=== PATIENT | male | born 1960 | race Caucasian/White ===

== ENCOUNTER 2023-11-25 16:23 | Inpatient (IN) | payer OTHER, SELFPAY ==
[2023-11-25] VITALS (10 sets, daily range): BP systolic 98–124; BP diastolic 52–83; BMI 20.1
[2023-11-25 12:27] LABS: Glucose - Point of Care 388 mg/dl (70-99)
[2023-11-25 12:36] LABS: % Basophils 0.7 % (0-2); % Eosinophils 0.2 % (0-6); % Immature Granulocytes 0.2 % (0-0.5); % Lymphocytes 10.4 % (20.5-51.1); % Monocytes 5.2 % (1.7-9.3); % Neutrophils 83.3 % (42.2-75.2); Absolute Lymphocytes 0.6 10^3/uL (1.2-3.4); Absolute Monocytes 0.3 10^3/uL (0.1-0.6); Hematocrit 43.4 % (39.0-52.0); Hemoglobin 15.5 g/dL (13.0-18.0); Mean Corp Hgb Conc. 35.7 g/dL (33.0-37.0); Mean Corpuscular Hgb 30.3 pg (27.0-31.0); Mean Corpuscular Volume 84.9 fL (80.0-94.0); Mean Platelet Volume 10.9 fL (7.4-10.4); Nucleated Red Blood Cells % 0 % (-); Platelet Count 216 10^3/uL (130-400); Red Blood Cell Count 5.11 10^6/uL (4.70-6.10); Red Cell Dist. Width 12.6 % (11.5-14.5)
[2023-11-25 12:45] LABS: ALT (SGPT) 43 U/L (0-50); AST (SGOT) 33 U/L (17-59); Albumin 5.1 g/dl (3.5-5.0); Alkaline Phosphatase 155 U/L (38-126); Blood Urea Nitrogen 13 mg/dl (9-20); Calcium 10.1 mg/dl (8.4-10.2); Carbon Dioxide 15 mmol/L (22-30); Chloride 98 mmol/L (98-107); Glucose 429 mg/dl (70-99); Potassium 5.2 mmol/L (3.5-5.1); Sodium 137 mmol/L (135-145); Total Bilirubin 1.2 mg/dl (0.2-1.3); Total Protein 6.6 g/dl (6.3-8.2); eGFR > 60.00
[2023-11-25 13:30] LABS: Urine Albumin Trace (Neg - Trace); Urine Bilirubin Negative (Negative); Urine Character Clear (Clear); Urine Color Yellow; Urine Glucose 3+ (Negative); Urine Ketone 3+ (Negative); Urine Leukocyte Negative (Negative); Urine Nitrite Negative (Negative); Urine Occult Blood Negative (Negative); Urine Urobilinogen Negative (Neg - 1+)
--- NOTE | 2023-11-25 13:39 | ED.GENMED ---
History of Present Illness
General
Chief Complaint: Blood Sugar Problem
Source: patient
Time Seen by Provider: 11/25/23 13:28
History of Present Illness
History of Present Illness:
62-year-old male presents to the emergency room complaining of high blood sugar, increased thirst, increased urination. Patient has diabetes for which he is prescribed metformin, long-acting insulin and short acting insulin. Patient states he no
longer has benefits and is unable to afford his medication. He has not taken his medication for about 2 weeks. He was seen by his primary care doctor who sent him to the emergency room. Patient denies any nausea or vomiting. He denies abdominal
pain. No fever or chills.
Phy Exam
Physical Exam
Physical Exam:
General: Awake, Alert, Oriented X3. No acute distress, appears quite thin, chronically ill
Vitals: unremarkable
Head: Atraumatic
Eyes: Pupils equal, EOMI
Throat: Airway intact, no exudates, dry mucosa
Neck: Trachea midline
Lungs: Clear and equal b/l
Heart: Regular rate, no murmurs
Abd: Soft, Nontender, No pulsatile mass
Neuro: Nonfocal
Skin: Warm, dry, no rash
Extremities: pulses equal b/l, no edema
Course
Orders/Labs/Results
Orders:
Orders
11/25/23 12:26
B-Hydroxybutyrate Urgent
Comment: ADD ON
Complete Blood Count/With Diff Urgent
Comprehensive Metabolic Panel Urgent
11/25/23 13:12
Urinalysis Reflex To Culture Urgent
Date Specimen was Collected: 11/25/23
Time Specimen was Collected: 12:22
11/25/23 13:30
Add On- LAB Urgent
Tests Added?: b-hydroxybuterate
11/25/23 13:39
0.9% Sodium Chloride 1000 ml [Nss] 1,000 ml IV BOLUS
11/25/23 14:24
Venous Blood Gas Urgent
%Oxygen/Room Air: ra
11/25/23 14:46
Bedside Glucose- Treatment Q1H
IV Insert/Care/Rem.- Treatment PRN
11/25/23 15:03
Reg Insulin 100 Units/100 ml [Novolin R Insulin Infusion] 100 units in 100 ml IV NOW
11/25/23 15:04
KCl 20 Meq/0.9%Sodchl 1000 ml [NSS with KCL 20 MEQ] 20 meq in 1,000 ml IV 125 mls/hr
11/25/23 15:29
Basic Metabolic Panel Q2H
11/25/23 15:51
0.9% Sodium Chloride 1000 ml [Nss] 1,000 ml IV BOLUS
11/25/23 15:59
Admit/Transfer Patient As Directed
Co-Sign Provider:
Level of Care: Inpatient admission
Assign to:: IMU- Intermediate Care
Physician / Group: Mary Armendariz
Diagnosis: DKA
Reason for Hospitalization: DKA
Expected length of stay greater than two midnights?: Yes
ELOS- Estimated Length of Stay in days: 3
I certify the patient meets the requirements for IP care: Yes
PRN Pain Medication Management As Directed
May give lesser potent ordered pain med per pt: Yes
preference::
Protocol:: Medication orders for pain may be administered in a
manner that supports deferring to patient preference
when the pt is:
- Requesting an ordered lesser potent pain medication.
Least to most potent pain medications are defined
as: acetaminophen < NSAID < tramadol < opioids
(morphine, oxycodone, hydromorphone).
- Requesting a lesser dose of the same medication IF
ORDERED.
- Requesting a less intrusive route of administration
if both routes are prescribed by the provider (PO <
IV).
11/25/23 16:00
Code Status As Directed
Resuscitation Status: Full Code
11/25/23 17:09
Basic Metabolic Panel Q2H
11/25/23 17:39
Bedside Glucose Monitoring As Directed
Frequency: Q1H
Nursing to Place Non Medication Order As Directed
Physician Order: TT me with each BMP result (until 11:30 PM then please TT house [employer]ING CUTTER if insulin gtt is still
going)
11/25/23 18:28
Enoxaparin Sodium [Lovenox] 40 mg SC QPM
Reg Insulin 100 Units/100 ml [Novolin R Insulin Infusion] 100 units in 100 ml IV PER PROTOCOL
Currently infusing. Continue current dose and titrate:: Yes
11/25/23 18:28
Diabetes Management by Nurse Practitioner Routine
Consulting Provider: Janette Ayoub
Was provider already notified?: Yes
Activity As Directed
Activity Level: As Tolerated
Intake/ Output As Directed
Frequency: Per unit guidelines
Notify MD As Directed
Notify physician if: Nurse to contact provider when glucose reaches 250 to obtain orders for D5 0.45 NaCl
Vital Signs As Directed
Frequency: Per unit guidelines
DX Deep Vein Thrombosis Video Routine
11/25/23 23:00
Basic Metabolic Panel Q4H
11/26/23 03:00
Basic Metabolic Panel Q4H
11/26/23 Breakfast
NPO
Allow oral meds: Yes
Allow clear liquids: No
NPO with Ice Chips: Yes
Basic Metabolic Panel IN AM
Complete Blood Count/No Diff IN AM
11/26/23 07:00
Basic Metabolic Panel Q4H
11/26/23 11:00
Basic Metabolic Panel Q4H
11/26/23 15:00
Basic Metabolic Panel Q4H
11/26/23 19:00
Basic Metabolic Panel Q4H
11/26/23 23:00
Basic Metabolic Panel Q4H
Abnormal Lab Results
11/25/23 11/25/23 11/25/23
12:25 12:26 13:12
MPV 10.9 H fL
(7.4-10.4)
Absolute Lymphs (auto) 0.6 L 10^3/uL
(1.2-3.4)
Neutrophils % 83.3 H %
(42.2-75.2)
Lymphocytes % 10.4 L %
(20.5-51.1)
VBG pH
VBG HCO3
Potassium 5.2 H mmol/L
(3.5-5.1)
Carbon Dioxide 15 L mmol/L
(22-30)
Creatinine 0.6 L mg/dL
(0.7-1.3)
Glucose 429 H mg/dl
(70-99)
Alkaline Phosphatase 155 H U/L
(38-126)
Albumin 5.1 H g/dl
(3.5-5.0)
Urine Ketones 3+ A
(Negative)
Urine Glucose 3+ A
(Negative)
B-Hydroxybutyrate > 6.00 H mmol/L
(0.02-0.27)
POC Glucose 388 H mg/dl
(70-99)
11/25/23 11/25/23
14:24 15:29
MPV
Absolute Lymphs (auto)
Neutrophils %
Lymphocytes %
VBG pH 7.21 L
(7.32-7.43)
VBG HCO3 15.2 L mmol/L
(22-27)
Potassium
Carbon Dioxide 12 L* mmol/L
(22-30)
Creatinine 0.6 L mg/dL
(0.7-1.3)
Glucose 356 H mg/dl
(70-99)
Alkaline Phosphatase
Albumin
Urine Ketones
Urine Glucose
B-Hydroxybutyrate
POC Glucose
11/25/23 12:26
11/25/23 15:29
Vital Signs
Initial and Last Documented VS:
Initial Vital Signs
Temp Pulse Resp BP Pulse Ox
97.5 F 92 18 115/69 98
11/25/23 12:17 11/25/23 12:17 11/25/23 12:17 11/25/23 12:17 11/25/23 12:17
Last Documented Vital Signs
Temp Pulse Resp BP Pulse Ox
97.5 F 58 15 108/52 100
11/25/23 12:17 11/25/23 19:07 11/25/23 19:07 11/25/23 19:06 11/25/23 19:07
MDM/Problems Addressed
Differential Diagnosis Includes:
DKA, hyperosmolar hyperglycemic state, hypoglycemia, electrolyte abnormality
MDM/Problems Addressed:
Patient presents with polyuria, polydipsia, weakness after not having access to his diabetic medication for the last 2 weeks or so. Patient is hemodynamically stable. His CBC is unremarkable. His chemistry show an anion gap metabolic acidosis.
Beta hydroxybutyrate is high and a venous blood gas shows a mild metabolic acidosis. Insulin drip initiated. Patient will be admitted to the hospital service for close monitoring and treatment.
Acute Exacerbation and/or Progression of Chronic Illness: DM
*Pulse Oximetry
Patient hypoxic: no
*Sharepoint Solutions Architect Interpretation
Rate: normal
Interpretation: normal
Heart Rate: 92
Rhythm: sinus
*Critical Care Note
Total Time (30-74mins, 75-104mins- exclusive of procedures): 35 min
comment:
Critical care statement: A total of 35 minutes of critical care time was provided for this patient. This includes management of unstable vital signs, evaluation of the patient at bedside, reviewing the patient's pertinent medical records, discussion
with consultants, review of old EKGs and review of pertinent medical records. This time with separate from time utilized to perform the aforementioned documented procedures
ED Attending Note
-
Portions of this chart may have been created with voice recognition software.� Occasional wrong word or��sound alike� substitutions may have occurred due to the inherent limitations of voice recognition software.
Discharge Plan
Departure
Patient Disposition: Admit
Date of Disposition: 11/25/23
Time of Disposition: 14:50
Admit to: IMU
Presentation/result/management discussed w/ accepting MD/DO: Hospitalist
Condition: Serious
Discharge Problem:
DKA (diabetic ketoacidosis)
Interventions
Interventions:
*Risk Screen - Suicide Last Done: 11/25/23 12:17
*General Assessment Last Done: 11/25/23 12:17
*Neglect/Abuse Screening Last Done: 11/25/23 12:17
ED- Fall Risk Assessment Last Done: 11/25/23 14:32
*ED COVID-19 Vaccine History Last Done: 11/25/23 14:32
*Nursing Disposition Last Done: 11/25/23 18:39
ED- Neurological Assessment Last Done: 11/25/23 14:32
ED-Psychological Assessment Last Done: 11/25/23 14:32
Discharge Date and Time
Discharge Date/Time: 11/25/23 18:39
[2023-11-25] MEDS: NSS 1000 IV ×2 (14:25→15:52)
[2023-11-25 14:32] LABS: Venous Blood Gas HCO3 15.2 mmol/L (22-27); Venous Blood Gas pCO2 38 mmHg (35-48); Venous Blood Gas pH 7.21 (7.32-7.43); Venous Blood Gas pO2 45 mmHg (30-50)
[2023-11-25 14:33] LABS: B-Hydroxybutyrate > 6.00 mmol/L (0.02-0.27)
--- NOTE | 2023-11-25 15:23 | HPS.HSE ---
Family Physician
-
Family Physician: NOT KNOW UNKNOWN - PT DOES
Chief Complaint
-
high blood sugar
History of Present Illness
Mr. Arthur Roberts is a 62 yo man with hx DMII who presents to the ER with high blood sugars, increased thirst and urination in setting of not taking his insulin. Patient was not able to obtain medications over past 2 weeks secondary to insurance
issues.
Over past couple of days he has had increased thirst and urination. Previously he was taking Tresiba 30 units qhs and Lispro 4-6 units pre-meals in addition to metformin twice a day.
No fevers/chills. No cough/congestion. No dysuria. No chest pain. No nausea/vomiting/abdominal pain. No LE welling. No rash.
Medical History
Past Medical History
Past Medical History: Reports IDDM
Past Surgical History: Reports None
Social History
Tobacco: Non-smoker
Alcohol: Occasional
Family History
Family History: Not pertinent
Allergies / Home Medications
Allergies reflects when Allergies were last updated in [facility].
Home Medications with original date entered in [facility]
Allergy/Medication List:
Allergies
Allergy/AdvReac Type Severity Reaction Status Date / Time
No Known Allergies Allergy Unverified 11/25/23 12:17
Home Medications
insulin degludec 100 unit/mL (3 mL) subcutaneous pen (Tresiba FlexTouch U-100 insulin) 30 unit SC DAILY DIABETES 11/25/23
insulin lispro 100 unit/mL subcutaneous pen (Humalog KwikPen (U-100) Insulin) 5 unit SC TID DIABETES 11/25/23
metformin 500 mg tablet,extended release 24 hr 1,000 mg PO BID DIABETES 11/25/23
simvastatin 20 mg tablet 20 mg PO DAILY High Cholesterol 11/25/23
Review of Systems
-
History Source: Patient
A 12 point ROS was completed and negative except as noted: Yes
Physical Exam
Vital Signs
Vital Signs
Temp Pulse Resp BP Pulse Ox
97.5 F 67 17 124/83 100
11/25/23 12:17 11/25/23 14:30 11/25/23 14:30 11/25/23 14:21 11/25/23 14:30
Physical Exam
General: No Apparent Distress
HEENT: PERRLA
Respiratory: Clear; No Wheezes
Cardiac: S1/S2 and Regular Rhythm
GI: Soft and Non Tender
Musculoskeletal: No Edema
Skin: Warm and Dry; No Rash
Psych: Calm
Laboratory Results
-
11/25/23 12:26
Laboratory Results
Total Bilirubin 1.2 mg/dl (0.2-1.3) 11/25/23 12:26
AST 33 U/L (17-59) 11/25/23 12:26
ALT 43 U/L (0-50) 11/25/23 12:26
Alkaline Phosphatase 155 U/L (38-126) H 11/25/23 12:26
Data Reviewed
-
Diagnostic Radiology: Report Reviewed by me
Lab Data: Labs Reviewed by me
Impression/Plan
-
Mr. Arthur Roberts is a 62 yo man with hx DM II who presents to the ER with high blood sugars, increased thirst and urination in setting of not taking his insulin.
Triage VS: T 97.5, P 92, RR 18, BP 115/69, SpO2 98%
LABS: WBC 6, Hg 15.5, PLT 216, Na 137, K+ 5.2, Cl 98, CO2 15, Cr 0.6, Glucose 429
AG = 24
UA with 3+ Ketones and Glucose
MAR: 1L IVF, insulin gtt, KCl
DKA
-etiology is from not taking medication x 2 weeks 2/2 lack of insurance coverage
-2L bolus in ER, insulin gtt starting
-admit to IMU
-NPO
-continue insulin gtt
-q4hour BMP - RN to text me results
-IVF with KCl
-start D5 when blood glucose < 250
-transition to subQ insulin once gap closes (with 1-2 hours overlap)
-resume home regimen when transition to subQ
-monitor K
-CM and DM [employer] REPA[employer] TECHNICIAN consults
DVT PPx lovenox subQ
FULL CODE
76 minutes spent on patient care
[2023-11-25] MEDS: NSS with KCL 20 MEQ 1000 IV (15:55)
[2023-11-25] MEDS: NOVOLIN R INSULIN INFUSION 100 IV (15:57)
[2023-11-25 16:14] LABS: Blood Urea Nitrogen 12 mg/dl (9-20); Calcium 9.3 mg/dl (8.4-10.2); Carbon Dioxide 12 mmol/L (22-30); Chloride 103 mmol/L (98-107); Estimated Creatinine Clearance 110 ml/min; Glucose 356 mg/dl (70-99); Potassium 5.1 mmol/L (3.5-5.1); Sodium 137 mmol/L (135-145); eGFR > 60.00
[2023-11-25 17:26] LABS: Glucose - Point of Care 215 mg/dl (70-99)
[2023-11-25 17:39] LABS: Blood Urea Nitrogen 11 mg/dl (9-20); Carbon Dioxide 13 mmol/L (22-30); Chloride 108 mmol/L (98-107); Estimated Creatinine Clearance 110 ml/min; Glucose 218 mg/dl (70-99); Potassium 4.2 mmol/L (3.5-5.1); Sodium 140 mmol/L (135-145); eGFR > 60.00
[2023-11-25 18:06] LABS: Glucose - Point of Care 194 mg/dl (70-99)
[2023-11-25] MEDS: D5/0.45%NSS with KCL 20 MEQ 1000 IV (18:40)
--- NOTE | 2023-11-25 19:08 | PTCARENOTE ---
Admitted to 3343, Imu monitors placed, SR/ SB 58 Bp 108/52. Denies pain. Insulin gtt on arrival 3units/hr- IVF infusing as ordered- titrated insulin gtt down to 2 units/hr. Call stoddard in reach.
[2023-11-25 19:13] LABS: Glucose - Point of Care 159 mg/dl (70-99)
[2023-11-25] MEDS: LOVENOX 40 MG SC (20:07)
[2023-11-25 20:16] LABS: Glucose - Point of Care 124 mg/dl (70-99)
[2023-11-25 21:32] LABS: Glucose - Point of Care 140 mg/dl (70-99)
[2023-11-25 21:41] LABS: Blood Urea Nitrogen 11 mg/dl (9-20); Calcium 9.1 mg/dl (8.4-10.2); Carbon Dioxide 17 mmol/L (22-30); Chloride 108 mmol/L (98-107); Estimated Creatinine Clearance 110 ml/min; Glucose 151 mg/dl (70-99); Potassium 4.4 mmol/L (3.5-5.1); Sodium 139 mmol/L (135-145); eGFR > 60.00
[2023-11-25 22:37] LABS: Glucose - Point of Care 179 mg/dl (70-99)
[2023-11-25 23:21] LABS: Glucose - Point of Care 138 mg/dl (70-99)
[2023-11-26] VITALS (10 sets, daily range): BP systolic 96–150; BP diastolic 55–89; BMI 19.4
[2023-11-26 00:21] LABS: Glucose - Point of Care 125 mg/dl (70-99)
[2023-11-26 01:22] LABS: Glucose - Point of Care 130 mg/dl (70-99)
[2023-11-26 01:47] LABS: Blood Urea Nitrogen 9 mg/dl (9-20); Carbon Dioxide 19 mmol/L (22-30); Chloride 110 mmol/L (98-107); Estimated Creatinine Clearance 110 ml/min; Glucose 138 mg/dl (70-99); Potassium 4.3 mmol/L (3.5-5.1); Sodium 142 mmol/L (135-145); eGFR > 60.00
[2023-11-26 02:22] LABS: Glucose - Point of Care 121 mg/dl (70-99)
[2023-11-26] MEDS: D5/0.45%NSS with KCL 20 MEQ 1000 IV (02:57)
[2023-11-26 03:14] LABS: Glucose - Point of Care 117 mg/dl (70-99)
[2023-11-26 04:15] LABS: Glucose - Point of Care 127 mg/dl (70-99)
[2023-11-26 05:39] LABS: Glucose - Point of Care 132 mg/dl (70-99)
[2023-11-26 05:42] LABS: Hematocrit 35.1 % (39.0-52.0); Hemoglobin 12.8 g/dL (13.0-18.0); Mean Corp Hgb Conc. 36.5 g/dL (33.0-37.0); Mean Corpuscular Hgb 30.3 pg (27.0-31.0); Mean Platelet Volume 10.8 fL (7.4-10.4); Platelet Count 142 10^3/uL (130-400); Red Blood Cell Count 4.23 10^6/uL (4.70-6.10); Red Cell Dist. Width 12.8 % (11.5-14.5); White Blood Cell Count 3.5 10^3/uL (4.8-10.8)
[2023-11-26 05:55] LABS: Blood Urea Nitrogen 8 mg/dl (9-20); Calcium 8.9 mg/dl (8.4-10.2); Carbon Dioxide 21 mmol/L (22-30); Chloride 108 mmol/L (98-107); Estimated Creatinine Clearance 110 ml/min; Glucose 141 mg/dl (70-99); Sodium 139 mmol/L (135-145); eGFR > 60.00
--- NOTE | 2023-11-26 05:59 | PTCARENOTE ---
[address] Armendariz. Plan to continue insulin gtt overnight with Q1 hour blood glucose checks; patient updated on plan. 0100 BMP lab reported to YANDY Garcia. Pt denies any sob, pain, dizziness or nausea. Voiding at edge of bed
in urinal. no BM. Tolerating IVF. Kept NPO overnight per orders. Tele showing NSR/SB. VSS. Pt appears to have callus/old blisters at bottom of feet. Pt has some decreased sensation. Educated on checking feet everyday d/t being at risk for diabetic
foot wounds. Call stoddard and tray table left within reach. Pt calls appropriately.
[2023-11-26 06:19] LABS: Glucose - Point of Care 136 mg/dl (70-99)
--- NOTE | 2023-11-26 06:29 | W.PN.UPDATE ---
Update Note
Progress Note Update
Anion Gap at 10. Patient is not nauseous anymore per nursing. Will order a diet. Will add Lantus 15units in AM, Insulin Lispro 5 units TID. RN to stop the Insulin drip after 2 hours of Lantus. RN made aware.
[2023-11-26 07:11] LABS: Glucose - Point of Care 126 mg/dl (70-99)
--- NOTE | 2023-11-26 08:16 | PN.DE.MGMTRT ---
Insulin Management
- -
11/26/2023 Diabetes Management Consult
Patient admitted 11/[address] [facility] diabetes. Prior to admission was prescribed tresiba 30 units daily with humalog 4 to 6 units AC. Due to insurance issues has not had insulin for ~ 2 weeks. A1C ordered, cr .4, eGFR > 60.
11/25 Due to cost will start 70/30 insulin 25 units BID with low corrective. First dose now then insulin infusion off 1 after after administered.
Patient is awake, alert and oriented resting in bed. Able to discuss diabetes management. Impressed upon him [facility] would have the best khan for insulin. He feels he should be able to afford $63.00 for Novolin 70/30 at [facility]. He has a
working glucose monitor .
Will follow for possible needed adjustments.
Diabetes History
- -
Type of Diabetes: 2 requiring insulin
Pre-Admission Diabetes Regimen
11/25/23 11/25/23 11/25/23
12:26 15:29 17:09
Creatinine 0.6 L 0.6 L 0.6 L
11/25/23 11/25/23 11/25/23
19:00 21:00 21:21
Creatinine Cancelled Cancelled 0.5 L
11/25/23 11/26/23 11/26/23
23:00 01:20 05:28
Creatinine Cancelled 0.4 L 0.4 L
Insulin Pump Settings
IP Diabetes Regimen
11/25/23 11/25/23 11/25/23
12:25 12:26 15:29
Glucose 429 H 356 H
POC Glucose 388 H
11/25/23 11/25/23 11/25/23
17:09 17:23 18:04
Glucose 218 H
POC Glucose 215 H 194 H
11/25/23 11/25/23 11/25/23
19:00 19:02 20:05
Glucose Cancelled
POC Glucose 159 H 124 H
11/25/23 11/25/23 11/25/23
21:00 21:19 21:21
Glucose Cancelled 151 H
POC Glucose 140 H
11/25/23 11/25/23 11/25/23
22:25 23:00 23:09
Glucose Cancelled
POC Glucose 179 H 138 H
11/26/23 11/26/23 11/26/23
00:09 01:10 01:20
Glucose 138 H
POC Glucose 125 H 130 H
11/26/23 11/26/23 11/26/23
02:10 03:02 04:03
Glucose
POC Glucose 121 H 117 H 127 H
11/26/23 11/26/23 11/26/23
05:26 05:28 06:04
Glucose 141 H
POC Glucose 132 H 136 H
11/26/23
06:58
Glucose
POC Glucose 126 H
Patient Education
[2023-11-26 09:23] LABS: Glucose - Point of Care 126 mg/dl (70-99)
--- NOTE | 2023-11-26 10:01 | W.PN.HOSP.TC ---
Today's Communication/Plan
-
Transition to subcutaneous insulin
Case management discussed affordable insulin options outpatient
Assessment / Plan
Assessment / Plan
#Diabetic ketoacidosis
#T2DM
-Patient states he no longer has insurance benefits and was not able to afford insulin for 2-weeks
-Presented with acidemia, elevated BHB, elevated glucose consistent with DKA
-Started with on IV insulin drip protocol, anion gap closed x 2
-Potassium and phosphorus have been adequately repleted
-Patient states he feels well without symptoms, can tolerate p.o. intake
Plan
-Plan to transition to LA insulin 15 units daily, SA insulin 5 units with meals
-Will monitor ISS with Accu-Cheks and uptitrate insulin requirements as needed
-Blood glucose goal 140�180, avoid hypoglycemia
-Case management to discuss affordable options for insulin after discharge
-Carbohydrate controlled diet
-Plan to continue metformin at DC
DVT prophylaxis: Lovenox
Diet: Carbohydrate controlled
CODE STATUS: Full code
Anticipated Discharge: Within 24 hours
Subjective/Interval History
-
Date of Service: November 26, 2023
Seen and examined at the bedside. No acute events reported overnight. AFVSS this morning.
He states he feels well and without complaints. States that he lost his insurance benefits and is not been able to finance his insulin for 2 weeks
Denies chest pain, dyspnea, fevers or chills, nausea/vomiting/diarrhea/abdomen pain, urinary issues, bleeding or bruising, paresthesias or weakness
Objective Data
-
Labs:
Laboratory Results
11/26/23 11/26/23 11/26/23
01:20 05:28 09:00
WBC 3.5 L
Hgb 12.8 L
Hct 35.1 L
Plt Count 142 D
Sodium 142 139 Pending
Potassium 4.3 4.0 Pending
Chloride 110 H 108 H Pending
Carbon Dioxide 19 L 21 L Pending
BUN 9 8 L Pending
Creatinine 0.4 L 0.4 L Pending
Glucose 138 H 141 H Pending
Calcium 9.0 8.9 Pending
11/26/23 11/26/23
13:00 17:00
WBC
Hgb
Hct
Plt Count
Sodium Pending Pending
Potassium Pending Pending
Chloride Pending Pending
Carbon Dioxide Pending Pending
BUN Pending Pending
Creatinine Pending Pending
Glucose Pending Pending
Calcium Pending Pending
Vital Signs:
Vital Signs
Temp Pulse Resp BP Pulse Ox
97.6 F 54 16 96/60 97
11/26/23 07:10 11/26/23 06:00 11/26/23 06:00 11/26/23 06:00 11/26/23 06:00
I&O
11/25/23 11/26/23 11/27/23
06:59 06:59 06:59
Intake Total 1375 / 1375
Output Total 925 / 925
Balance 450 / 450
Review of Systems
-
History Source: Patient
All other systems: Reviewed and negative
Physical Exam
-
General: No Apparent Distress, Comfortable and Other (Thin male)
HEENT: Normocephalic, Atraumatic and Moist Mucous Membranes
Respiratory: Clear to Auscultation and Non Labored Respirations; Negative Wheezes, Rales or Rhonchi
Cardiac: Regular Rhythm and S1/S2 (Soft); Negative Murmur, Rub or Gallop
GI: Soft, Nontender, Nondistended and Normal Bowel Sounds
Musculoskeletal: No Clubbing, No Cyanosis and No Edema
Skin: Warm and Dry; Negative Rash
Neuro: AO x 3, Nonfocal/Grossly Intact and Central Nerve's Intact
Psych: Calm
Data Reviewed
-
Labs: Labs Reviewed by me, Discussed with Nurse and Discussed with Patient
[2023-11-26] MEDS: NOVOLOG MIX 70/30 FLEXPEN 25 UNITS SC ×2 (10:42→17:23)
[2023-11-26 10:52] LABS: Glucose - Point of Care 137 mg/dl (70-99)
[2023-11-26] MEDS: D5/0.45%NSS with KCL 20 MEQ IV (11:39)
[2023-11-26] MEDS: NOVOLOG FLEXPEN-LOW RESISTANCE SC (12:20)
[2023-11-26 12:30] LABS: Glucose - Point of Care 58 mg/dl (70-99)
[2023-11-26 12:31] LABS: Glycohemoglobin (HgbA1c) 10.1 % (4.0-5.6)
[2023-11-26 13:01] LABS: Glucose - Point of Care 119 mg/dl (70-99)
[2023-11-26 14:27] LABS: Glucose - Point of Care 177 mg/dl (70-99)
[2023-11-26] MEDS: NOVOLOG FLEXPEN-LOW RESISTANCE 1 UNITS SC (14:30)
--- NOTE | 2023-11-26 16:29 | CM ---
Patient with Dx DKA. Rom air.
Met with patient who resides alone in a 2 story townhouse with 1 GEMA that he is renting.
The patient has been independent in ADLs and ambulation.
DME - accucheck meter & test strips
The patient has no prior VN or SNF.
PCP - FANTA Garay
Pharmacy - [facility]
No housing/food/utility/transport insecurity.
Dr Campuzano reached out to CM re; affordable insulin for patient who doesn't have insurance anymore. CM deferred to the DM Educator to decide on best insulins for this patient.
The patient has concerns about cost of his insulin- he is aware DM Educator is helping him with insulin options, and feel he can afford the $65/month insulin that was suggested.
The patient is aware that [facility] is helping him apply for Medicaid.
Spoke with CAYDEN White; patient will likely be approved for [place] once he provides the requisite documents.
The patient has a brother Fawad in [place]. A friend will provide transport home.
No CM d/c needs identified.
Plan home.
--- NOTE | 2023-11-26 16:51 | PTCARENOTE ---
insulin drip discontinued. his pre breakfast blood sugar was 58 (70/30 given per order 1 hour prior and breakfast tray didnt arrive within hour. juice given and blood sugar within normal parameters. per protocol blood sugar repeated q2 hrs x 2. 2nd
q2 bllod sugar 345( first result rr high discarded d/t poor sample). notified general accounting manager, awaiting further orders.
[2023-11-26 16:52] LABS: Glucose - Point of Care 423 mg/dl (70-99)
[2023-11-26] MEDS: LOVENOX 40 MG SC (17:24)
[2023-11-26] MEDS: NOVOLOG FLEXPEN-LOW RESISTANCE 4 UNITS SC (18:30)
[2023-11-26 18:40] LABS: Glucose - Point of Care 309 mg/dl (70-99)
[2023-11-26 20:59] LABS: Hepatitis C Antibody Negative (Negative)
[2023-11-26 21:33] LABS: Glucose - Point of Care 178 mg/dl (70-99)
[2023-11-27] VITALS: BP 116/66
[2023-11-27 02:00] VITALS: BP 112/68
[2023-11-27 03:58] LABS: Glucose - Point of Care 54 mg/dl (70-99)
[2023-11-27 04:00] VITALS: BP 111/77
[2023-11-27 04:05] LABS: % Basophils 0.7 % (0-2); % Eosinophils 2.9 % (0-6); % Immature Granulocytes 0.2 % (0-0.5); % Lymphocytes 20.7 % (20.5-51.1); % Monocytes 6.7 % (1.7-9.3); % Neutrophils 68.8 % (42.2-75.2); Absolute Eosinophils 0.1 10^3/uL (0-0.7); Absolute Lymphocytes 0.9 10^3/uL (1.2-3.4); Absolute Monocytes 0.3 10^3/uL (0.1-0.6); Absolute Neutrophils 2.9 10^3/uL (1.4-6.5); Hematocrit 38.3 % (39.0-52.0); Hemoglobin 14.1 g/dL (13.0-18.0); Mean Corp Hgb Conc. 36.8 g/dL (33.0-37.0); Mean Corpuscular Hgb 30.4 pg (27.0-31.0); Mean Corpuscular Volume 82.5 fL (80.0-94.0); Mean Platelet Volume 10.9 fL (7.4-10.4); Nucleated Red Blood Cells % 0 % (-); Platelet Count 154 10^3/uL (130-400); Red Blood Cell Count 4.64 10^6/uL (4.70-6.10); Red Cell Dist. Width 12.6 % (11.5-14.5); White Blood Cell Count 4.2 10^3/uL (4.8-10.8)
[2023-11-27 04:26] LABS: Glucose - Point of Care 101 mg/dl (70-99)
[2023-11-27 04:41] LABS: Blood Urea Nitrogen 6 mg/dl (9-20); Calcium 9.1 mg/dl (8.4-10.2); Carbon Dioxide 28 mmol/L (22-30); Chloride 104 mmol/L (98-107); Estimated Creatinine Clearance 106 ml/min; Glucose 52 mg/dl (70-99); Sodium 141 mmol/L (135-145); eGFR > 60.00
--- NOTE | 2023-11-27 06:01 | PTCARENOTE ---
Addendum entered by Arlene Jackson RN 11/27/23 06:20:
The hypoglycemia episode was discussed with Maura KEBEDE in person.
Original Note:
3AM blood sugar was 54; pt asymptomatic. followed protocol and gave 4 oz OJ, recheck is 101. At 6AM 2 hour check blood sugar 119. Next blood sugar check due at 8AM.
No other events overnight.
Denies any pain/nausea/vomiting/sob/cp/palp.
Call stoddard and tray table within reach.
[2023-11-27 06:02] VITALS: BP 130/72
[2023-11-27 06:08] LABS: Glucose - Point of Care 119 mg/dl (70-99)
--- NOTE | 2023-11-27 07:48 | PN.DE.MGMTRT ---
Insulin Management
- -
11/27/2023 Diabetes Management F/U:
62 year old male admitted 11/24 with DKA. PMH: T2DM. Prior to admission was prescribed Tresiba 30 units daily with Humalog 4 to 6 units AC. Due to insurance issues has not had insulin for ~ 2 weeks. A1C ordered, cr .4, eGFR > 60. transitioned off
Insulin gtt to SQ insulin 11/25. Started 70/30 insulin 25 units BID with low corrective due to cost.
Patient is awake, alert and oriented resting in bed. Able to discuss diabetes management.
HS glucose was 178, pt received 25 units of 70/30- at dinner time-->hypoglycemia at 3AM as low as 53, improved to 101 after treatment.
Will reduce 70/30 dose to 22 units. Will continue to follow for further adjustments if needed
Impressed upon him [facility] would have the best khan for insulin.
he feels he should be able to afford $63.00 for Novolin 70/30 at [facility]. He has a working glucose monitor .
Diabetes History
- -
Type of Diabetes: 2 requiring insulin
Pre-Admission Diabetes Regimen
11/26/23 11/26/23 11/26/23
09:00 13:00 17:00
Creatinine Cancelled Cancelled Cancelled
11/27/23
03:42
Creatinine 0.5 L
Lab Results
Hemoglobin A1c Cancelled 11/26/23 08:20
Insulin Pump Settings
IP Diabetes Regimen
11/26/23 11/26/23 11/26/23
09:00 09:12 10:41
Glucose Cancelled
POC Glucose 126 H 137 H
11/26/23 11/26/23 11/26/23
12:17 12:49 13:00
Glucose Cancelled
POC Glucose 58 L 119 H
11/26/23 11/26/23 11/26/23
14:14 16:37 17:00
Glucose Cancelled
POC Glucose 177 H 423 H
11/26/23 11/26/23 11/27/23
18:28 21:21 03:42
Glucose 52 L*
POC Glucose 309 H 178 H
11/27/23 11/27/23 11/27/23
03:46 04:14 05:57
Glucose
POC Glucose 54 L* 101 H 119 H
Meal type: Dinner
Amount consumed: 100%
Patient Education
[2023-11-27] MEDS: NOVOLOG FLEXPEN-LOW RESISTANCE SC (07:57)
[2023-11-27 08:01] VITALS: BP 152/114
[2023-11-27 08:05] LABS: Glucose - Point of Care 122 mg/dl (70-99)
[2023-11-27] MEDS: KCL 40 MEQ PO (08:49)
[2023-11-27] MEDS: NOVOLOG MIX 70/30 FLEXPEN 25 UNITS SC (08:49)
--- NOTE | 2023-11-27 10:04 | W.PN.HOSP.TC ---
Today's Communication/Plan
-
Reduce NovoLog to 22 units twice daily
Continue 5 units mealtime insulin
Accu-Cheks
Likely discharge
Assessment / Plan
Assessment / Plan
#Diabetic ketoacidosis
#T2DM
-Patient states he no longer has insurance benefits and was not able to afford insulin for 2-weeks
-Presented with acidemia, elevated BHB, elevated glucose consistent with DKA
-Started with on IV insulin drip protocol, anion gap closed x 2
-Potassium and phosphorus have been adequately repleted
-Was started on NovoLog 25 units twice daily, 5 units SA with meals
-Hypoglycemic overnight to the 50s, will reduce NovoLog to 22 units twice daily
-Continue Accu-Cheks while here
DVT prophylaxis: Lovenox
Diet: Carbohydrate controlled
CODE STATUS: Full code
Anticipated Discharge: Today
Subjective/Interval History
-
Date of Service: November 27, 2023
Seen and examined at the bedside. No acute events overnight. AFVSS this morning
He did have an episode of hypoglycemia overnight. Denies symptoms at the time. Glucose has been at goal since that time. Potassium also 3.0 this morning, 120 mEq KCl ordered for today
Denies any acute complaints including chest pain, dyspnea, fevers or chills, GI issues, urinary issues, bruising, paresthesias or weakness
Objective Data
-
Labs:
Laboratory Results
11/27/23
03:42
WBC 4.2 L
Hgb 14.1
Hct 38.3 L
Plt Count 154
Sodium 141
Potassium 3.0 L
Chloride 104
Carbon Dioxide 28
BUN 6 L
Creatinine 0.5 L
Glucose 52 L*
Calcium 9.1
Vital Signs:
Vital Signs
Temp Pulse Resp BP Pulse Ox
98.3 F 66 18 130/72 98
11/27/23 07:00 11/27/23 06:02 11/27/23 06:02 11/27/23 06:02 11/27/23 03:48
I&O
11/26/23 11/27/23 11/28/23
06:59 06:59 06:59
Intake Total 1375 / 1375
Output Total 925 / 925
Balance 450 / 450
Review of Systems
-
History Source: Patient
All other systems: Reviewed and negative
Physical Exam
-
General: Well Nourished, No Apparent Distress and Comfortable
HEENT: Normocephalic, Atraumatic and Moist Mucous Membranes
Respiratory: Clear to Auscultation and Non Labored Respirations; Negative Wheezes, Rales or Rhonchi
Cardiac: Regular Rhythm and S1/S2; Negative Murmur, Rub or Gallop
GI: Soft, Nontender, Nondistended and Normal Bowel Sounds
Musculoskeletal: No Clubbing, No Cyanosis and No Edema
Skin: Warm, Dry and Normal Turgor; Negative Rash
Neuro: AO x 3, Nonfocal/Grossly Intact and Central Nerve's Intact
Psych: Calm
Data Reviewed
-
Labs: Labs Reviewed by me, Discussed with Nurse and Discussed with Patient
[2023-11-27 11:41] LABS: Glucose - Point of Care 207 mg/dl (70-99)
[2023-11-27 11:49] VITALS: BP 118/77
[2023-11-27] MEDS: NOVOLOG FLEXPEN-LOW RESISTANCE 2 UNITS SC (12:30)
--- NOTE | 2023-11-27 14:13 | W.DCSUMMARY ---
Discharge Summary
Discharge Data
Date of Admission: 11/25/23
Date of Discharge: 11/27/23
-
Pending Results: No
Hospital Course
62-year-old male with insulin-dependent type 2 diabetes mellitus that presented to the ED with abdomen pain, acidemia after running out of insulin and not taking it for 2 weeks. Initial labs showed elevated beta hydroxybutyrate and diagnosis of DKA
was made. Was started on IV insulin drip protocol and ultimately transitioned the next day to NovoLog 70/30 22 units twice daily. Diabetic consult helped to arrange affordable insulin options after discharge. Recommended to continue with
metformin, continue 22 units NovoLog twice daily at 0800 and 1700. Referrals for primary care and endocrinology given at discharge. Continued on statin therapy.
Discharge Plan
-
Patient Disposition: Home (Routine Discharge)
Discharge Diagnosis/Procedures: Diabetic ketoacidosis
Type 2 diabetes mellitus
Condition: Good
Diet: Diabetic, Carb Controlled
Activity: As tolerated
Driving Restrictions: As prior to admission
Bathing Restrictions: None
Blood Work: BMP in 1 week
Others Tests: None
Activity Restrictions/Additional Instructions:
Follow-up with primary care physician after discharge from the hospital.
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
Instructions: Diabetic ketoacidosis, Carb counting for adults with diabetes
Referrals:
Layne Herring MD [Consulting Staff] - in one to two weeks
UNKNOWN - PT DOES,NOT KNOW [Family Provider] -
Alida Lin MD [Active] - in one week
Additional Discharge Medication Instructions: Start taking NovoLog 70/30 22 units twice daily (8 AM, 5 PM)
Monitor your home blood sugars.
Take 20 mEq KCl daily
Prescriptions:
New
insulin asp prt-insulin aspart 100 unit/mL (70-30) Insulin Pen
22 unit SC BID@0800,1700 30 Days Qty: 15 0RF
(DME) blood-glucose meter [Contour Next One Meter] Misc
Qty: 1 0RF
Rx Instructions:
As Directed
(DME) Accu-Chek Guide test strips Strip
Qty: 200 0RF
Rx Instructions:
As Directed
(DME) lancets [Accu-Chek Softclix Lancets] Misc
Qty: 200 0RF
Rx Instructions:
As Directed
potassium chloride 20 mEq tablet extended release
20 meq PO DAILY 14 Days Qty: 14 0RF
Continued
simvastatin 20 mg Tablet
20 mg PO DAILY
metformin 500 mg Tablet Extended Release 24 Hr
1,000 mg PO BID
Discontinued
insulin lispro [Humalog KwikPen Insulin] 100 unit/mL Insulin Pen
5 unit SC TID
insulin degludec [Tresiba FlexTouch U-100] 100 unit/mL (3 mL) Insulin Pen
30 unit SC DAILY
Discharge Orders:
Discharge Patient (As Directed); Ordered 11/27/23
Ordered By: Toi Campuzano
Discharge Date and Time
Print Language: CANADIAN
--- NOTE | 2023-11-27 15:39 | CM ---
Met with patient who was preparing for discharge.
The patient says he feels ready for discharge home today.
He attempted to reach his brother for a ride home however was unable.
Lyft ordered for transport home.
Plan home today.
== END 2023-11-27 15:45 | disposition home or self-care (01) | DRG 639 ==
LOC: IMU 16:23
PROVIDERS: ADMITTING PHYSICIAN Student in an Organized Health Care Education/Training Program; ATTENDING PHYSICIAN Internal Medicine; EMERGENCY PHYSICIAN Emergency Medicine
DX: E11.10 Type 2 diabetes mellitus with ketoacidosis without coma (principal); T38.3X6A Underdosing of insulin and oral hypoglycemic [antidiabetic] drugs, initial encounter; Z79.4 Long term (current) use of insulin
CPT/HCPCS: 80048; 80053; 81003; 82010; 82805; 82962; 83036; 85025; 85027; 86803; 96361; 96365; 96366; 96375; 99291